=== PATIENT | male | born 1940 | race Caucasian/White ===

== ENCOUNTER 2020-09-11 08:56 | Outpatient (CLI) | payer MEDICARE, SELFPAY ==
--- NOTE | ~2020-09-11 | US_ITS ---
EXAMINATION: US renal BI DATE: 09/11/2020 09:30 INDICATION: Possible renal lesions detected on screening TECHNIQUE: Multiple grayscale and Doppler ultrasound images of the kidneys were obtained. COMPARISON: None. FINDINGS: The right kidney measures 11.3 x 6.1 x 5.0 cm. The atrophic left kidney measures 7.0 x 3.6 x 3.4 cm. The kidneys demonstrate normal parenchymal echogenicity. There is no hydronephrosis. The bl adder volume is 2448 cc prevoid and 1923 cc post void. No bladder wall thickening is identified. IMPRESSION: 1. Urinary retention. 2. Mild left kidney atrophy. Reviewed, dictated and finalized at location A.
== END 2020-09-11 08:57 | disposition home or self-care (01) ==
LOC: ANHIMG 09:03
PROVIDERS: PCP Family Medicine; Visit Provider Family Medicine
DX: R68.89 Other general symptoms and signs (principal)
CPT/HCPCS: 76775

== ENCOUNTER 2022-07-16 11:32 | Outpatient (NON) | payer MEDICARE, SELFPAY ==
[2022-07-16 18:50] LABS: Immunochemical Fecal Occult Bl Negative (N)
[2022-07-16 18:51] LABS: IFOB Positive Control Positive
== END 2022-07-16 11:33 | disposition home or self-care (01) ==
LOC: ANHGOSHLAB 11:34
PROVIDERS: PCP Family Medicine; Visit Provider Family Medicine
DX: D64.9 Anemia, unspecified (principal)
CPT/HCPCS: 82274

== ENCOUNTER 2022-08-20 11:14 | Outpatient (CLI) | payer MEDICARE, SELFPAY ==
--- NOTE | ~2022-08-20 | XR_ITS ---
XR lumbar spine min 4V DATE: 08/20/2022 11:38 INDICATION: Low back pain, chronic, with recent worsening TECHNIQUE: AP, lateral, coned lateral lumbosacral and bilateral oblique views COMPARISON: None FINDINGS: There is approximately 17 degrees levoscoliosis of the lower thoracic and lumbar spine. There is a transitional lumbosacral vertebra with bilateral pseudoarthrosis. There is prominent degenerative disc disease throughout the lumbar spine, most prominent in the mid a nd lower lumbar area. No fracture or bone destruction of the lumbar spine or spondylolysis or spondylolisthesis is detected . The sacroiliac joints are intact. IMPRESSION: Rotatory levoscoliosis and prominent multilevel degenerative disc disease Reviewed, dictated and finalized at location B. IMPRESSION: Rotatory levoscoliosis and prominent multilevel degenerative disc d isease
== END 2022-08-20 11:15 | disposition home or self-care (01) ==
LOC: ANHIMG 11:19
PROVIDERS: PCP Family Medicine; Visit Provider Family Medicine
DX: M51.36 Other intervertebral disc degeneration, lumbar region (principal)
CPT/HCPCS: 72110

== ENCOUNTER 2024-05-15 17:59 | Emergency (ER) | payer MEDICARE, SELFPAY ==
[2024-05-15 18:17] VITALS: BP 152/67; PULSE 59; RESP 20; TEMP 36; O2SAT 99
[2024-05-15 18:28] VITALS: BP 152/65; PULSE 61; RESP 13; O2SAT 98
[2024-05-15 19:06] LABS: Basophils Percent Auto 0.5 % (0.2-1.2); Eosinophils Absolute Auto 0.1 K/mm3 (0-0.3); Eosinophils Percent Auto 1.4 % (0-4.4); Hematocrit 33.6 % (42.0-52.0); Hemoglobin 11.4 g/dL (14.0-18.0); Immature Granulocyte Absolute 0.02 K/mm3 (0.00-0.031); Immature Granulocyte Percent A 0.3 % (0-0.5); Lymphocytes Absolute Auto 1.34 K/mm3 (0.9-3.2); Lymphocytes Percent Auto 20.9 % (18.3-44.2); Mean Corpuscular HGB Conc 33.9 g/dl (32-36); Mean Corpuscular Hemoglobin 33.9 pg (26-34); Mean Platelet Volume 9.9 fl (7.4-10.4); Monocytes Absolute Auto 0.6 K/mm3 (0.1-0.6); Monocytes Percent Auto 8.8 % (2.6-8.5); Neutrophils Absolute Auto 4.4 K/mm3 (1.3-6.7); Neutrophils Percent Auto 68.1 % (45.5-73.1); Platelet Count Result 210 k/mm3 (150-375); Red Blood Count 3.36 M/mm3 (4.6-6.20); Red Cell Distribution Width 13.1 % (11.5-14.5); White Blood Count 6.4 K/mm3 (4.5-10.0)
[2024-05-15 19:16] LABS: Anion Gap 6 mmol/L (4-12); Blood Urea Nitrogen 19 mg/dL (9-20); Calcium 9.2 mg/dL (8.4-10.2); Carbon Dioxide 27 mmol/L (22-30); Chloride 105 mmol/L (98-107); Estimated CRCL calculation 63 ml/min; Estimated Glomerular Filt Rate > 60; Glucose 97 mg/dL (65-110); Potassium 3.8 mmol/L (3.4-5.0); Sodium 138 mmol/L (137-145)
[2024-05-15 19:19] LABS: Prothrombin Time 14.1 Seconds (11.1-14.7)
[2024-05-15 19:33] LABS: D Dimer 1.04 ug/mL (<0.48)
--- NOTE | 2024-05-15 20:20 | ED.EXTPRO ---
HPI - Extremity Problem General Chief complaint: Extremity Problem,Nontraumatic Stated complaint: right knee pain Time Seen by Provider: 05/15/24 18:41 Source: patient Mode of arrival: ambulatory Limitations: no limitations History of Present Illness HPI Narrative: 83-year-old with a remote history of DVT, hypertension, hypothyroidism head with the complaints of right leg pain for past 1 week. Pain is mostly behind right knee Patient states that he has seen his chiropractor this morning and has for advised to go to the ER for evaluation. He presented denies any chest pain or shortness of breath. Related Data Home Medications Medication Instructions Recorded Confirmed omega 1-dwn-bhr-fish oil 1,000 mg 1 cap PO DAILY 04/28/22 04/04/24 (120 mg-180 mg) capsule (Fish Oil) acetaminophen 650 mg 650 mg PO Q12H 04/04/24 04/04/24 tablet,extended release (Tylenol Arthritis Pain) cetirizine 10 mg capsule (All Day 10 mg PO DAILY PRN 04/04/24 04/04/24 Allergy (cetirizine)) magnesium oxide 400 mg (241.3 mg 400 mg PO DAILY 04/04/24 04/04/24 magnesium) tablet multivitamin 1 tablet PO BID 04/04/24 04/04/24 Allergies Allergy/AdvReac Type Severity Reaction Status Date / Time pseudoephedrine Allergy rapid Verified 05/15/24 18:28 [From [facility]] heart beat Review of Systems Review of Systems: All systems reviewed & are unremarkable except as noted in HPI and below Constitutional: Constitutional: Reports no additional constitutional complaints Eyes: Eyes: Reports no additional eye complaints ENT: Reports system reviewed and no additional complaints, except as documented Cardiovascular: Cardiovascular: Reports no additional cardiovascular complaints Respiratory: Respiratory: Reports no additional respiratory complaints Gastrointestinal: Gastrointestinal: Reports no additional gastrointestinal complaints Musculoskeletal: Musculoskeletal: Reports as per HPI Neurologic: Reports system reviewed and no additional complaints, except as documented [facility] Past Medical History Medical History Complex sleep apnea syndrome Diastolic dysfunction Hypertension Hypothyroidism (acquired) Insomnia Mixed hyperlipidemia Urinary retention Family History Family History Mother Carcinoma of colon, Onset Age: 80 Father Family history of congestive heart failure, Onset Age: 78 Mother Depression Carcinoma of colon, Onset Age: 80 Father Depression, Onset Age: 78 Family history of cardiovascular disease, Onset Age: 78 Family history of congestive heart failure, Onset Age: 78 Social History Social History Smoking status: Never smoker Alcohol intake: never Substance use: never Lack of Transportation: No Lack of Food: Never True Current Housing: I Have Housing Concerned About Future Housing: No Difficulty Paying Gas/Electric Bills: No Difficulty Paying for Meds: No Currently Unemployed: No Education: Master's Degree or Higher Difficulty w/ Childcare or Family Care: No Exam Narrative: GENERAL: Well-appearing, well-nourished, and in no acute distress. HEAD: Normocephalic, atraumatic. EYES: PERRLA and EOMI. ENT: Nares clear, no rhinorrhea or epistaxis. Mucous membranes moist. NECK: Supple. CHEST: Clear to auscultation. No respiratory distress. HEART: Regular rate and rhythm. No murmur heard. Normal peripheral pulses. ABDOMEN: Soft, nontender, nondistended, normal active bowel sounds. EXTREMITIES: Normal range of motion. No edema. Examination of his right leg shows mild tenderness in the right calf, no swelling SKIN: Warm, dry, no rash. NEURO: No focal deficits. Alert and oriented x3. PSYCH: Normal mood and affect. Course Course Emergency Course: notified patient about his lab work. Unfortu
[2024-05-15] MEDS: ENOXAPARIN 100 MG/ML SYRINGE 85 MG SUB-Q (20:46)
[2024-05-15 20:49] VITALS: BP 160/76; PULSE 52; RESP 17; O2SAT 98
== END 2024-05-15 20:49 | disposition home or self-care (01) ==
PROVIDERS: Emergency Provider Family Medicine; PCP Family Medicine
DX: M79.661 Pain in right lower leg (principal); I10 Essential (primary) hypertension; E03.9 Hypothyroidism, unspecified; E78.2 Mixed hyperlipidemia; G47.39 Other sleep apnea; G47.00 Insomnia, unspecified; Z79.899 Other long term (current) drug therapy
CPT/HCPCS: 36415; 80048; 85025; 85380; 85610; 96372; 99283; J1650

== ENCOUNTER 2024-05-16 07:10 | Outpatient (CLI) | payer MEDICARE, SELFPAY ==
--- NOTE | ~2024-05-16 | US_ITS ---
EXAMINATION: US venous doppler LE RT DATE: 05/16/2024 07:42 INDICATION: Right lower limb swelling. TECHNIQUE: Grayscale ultrasound images without and with compression and Doppler ultrasound images of the right lower extremity veins were obtained. COMPARISON: Ultrasound 05/03/2005 FINDINGS: The visualized portions of right common femoral vein, profunda (deep) femoral vein, femoral vein, pop liteal vein, peroneal veins, posterior tibial veins, and greater saphenous vein outflow are patent. IMPRESSION: 1. No deep venous thrombosis. Reviewed, dictated and finalized at location A.
== END 2024-05-16 07:11 | disposition home or self-care (01) ==
PROVIDERS: PCP Family Medicine; Visit Provider Family Medicine
DX: M79.89 Other specified soft tissue disorders (principal)
CPT/HCPCS: 93971

== ENCOUNTER 2024-05-25 14:39 | Outpatient (CLI) | payer MEDICARE, SELFPAY ==
--- NOTE | ~2024-05-25 | US_ITS ---
EXAMINATION: US arterial ankle brachial ind DATE: 05/25/2024 15:31 INDICATION: Other specified signs and symptoms involving the circulatory system including claudicatio n TECHNIQUE: Segmental pressures and plethysmographic and Doppler waveforms of the brachial and lower e xtremity arteries were obtained. COMPARISON: None. FINDINGS: Right and left brachial artery pressures of 180 mm Hg and 173 mm Hg, respectively, are concordant (no rmal difference <= 30 mmHg). The right ankle-brachial index (TYSON) is 1.11 (normal >= 0.9-1.0). The right great toe-brachial index (TBI) is 0.71 (normal >= 0.65). Arterial Doppler waveforms are monophasic with brisk systolic upstrok es at both the right dorsalis pedis and posterior tibial arteries. The left TYSON is 0.94. The left TBI is 0.74. Arterial Doppler waveforms are biphasic at the left poste rior tibial artery and monophasic at the left dorsalis pedis artery, both with brisk systolic upstrok es. IMPRESSION: 1. No significant arterial occlusive disease with normal bilateral ABIs and TBIs. Reviewed, dictated and finalized at location B. IMPRESSION: 1. No significant arterial occlusive disease with normal bilateral ABIs and TBI s.
== END 2024-05-25 14:40 | disposition home or self-care (01) ==
PROVIDERS: PCP Family Medicine; Visit Provider Clinical Nurse Specialist
DX: R09.89 Other specified symptoms and signs involving the circulatory and respiratory systems (principal)
CPT/HCPCS: 93922

== ENCOUNTER 2024-05-30 12:35 | Outpatient (CLI) | payer MEDICARE, SELFPAY ==
--- NOTE | ~2024-05-30 | MR_ITS ---
EXAMINATION: MR lumbar spine wo con DATE: 05/30/2024 13:14 INDICATION: Radiculopathy, lumbar region. TECHNIQUE: Magnetic resonance imaging (MRI) of the lumbar spine was performed without intravenous con trast. Sequences included sagittal T2-weighted FSE, sagittal T2-weighted FS FSE, sagittal T1-weighted FSE, and axial T2-weighted FSE. COMPARISON: Lumbar spine radiographs 08/20/2022 FINDINGS: There is 13 degrees levoscoliosis of lumbar spine. There is mild chronic anterior wedging o f T12 and L1 vertebral bodies. There is mildly decreased disc height at L1-L2, moderately decreased d isc height at L2-L3, severely decreased disc height at L3-L4, moderately decreased disc height at L4- L5, and severely decreased disc height at L5-S1. The distal spinal cord signal intensity is normal. T he conus medullaris is at L2. There is moderate atrophy of left kidney. The following disc levels are specifically discussed: L1-L2: The disc is bulging. There is mild right and severe left facet joint osteoarthritis. There is mild bilateral neural foraminal stenosis. There is mild central canal stenosis. L2-L3: The disc is bulging. There is mild bilateral facet joint osteoarthritis. There is mild bilater al neural foraminal stenosis. There is mild central canal stenosis. L3-L4: The disc is bulging. There is mild bilateral facet joint osteoarthritis. There is mild bilater al neural foraminal stenosis. There is mild central canal stenosis. L4-L5: The disc is bulging. There is moderate bilateral facet joint osteoarthritis. There is mild rig ht and moderate left neural foraminal stenosis. There is mild central canal stenosis. L5-S1: The disc is bulging and has an annular fissure. There is mild right and severe left facet join t osteoarthritis. There is mild left neural foraminal stenosis. There is no central canal stenosis. IMPRESSION: 1. Severe lumbar spondylosis. 2. Lumbar levoscoliosis. Reviewed, dictated and finalized at location A.
== END 2024-05-30 12:36 | disposition home or self-care (01) ==
LOC: ANHIMG 12:37
PROVIDERS: PCP Family Medicine; Visit Provider Clinical Nurse Specialist
DX: M47.26 Other spondylosis with radiculopathy, lumbar region (principal)
CPT/HCPCS: 72148

== ENCOUNTER 2024-06-13 14:37 | Outpatient (CLI) | payer MEDICARE, SELFPAY ==
--- NOTE | ~2024-06-13 | XR_ITS ---
Left Knee Technique: AP, lateral, and sunrise views were obtained. Clinical History: Pain Findings: No fracture or dislocation is seen. Osseous alignment is anatomic. There is minimal patella r spurring. Soft tissues are unremarkable. No joint effusion is seen. Impression: Minimal patellar spurring. Reviewed, dictated and finalized at location . Impression: Minimal patellar spurring.
== END 2024-06-13 14:38 | disposition home or self-care (01) ==
LOC: ANHIMG 14:42
PROVIDERS: PCP Family Medicine; Visit Provider Physical Medicine & Rehabilitation Pain Medicine
DX: M25.561 Pain in right knee (principal); M25.562 Pain in left knee
CPT/HCPCS: 73564

== ENCOUNTER 2025-02-20 15:12 | Outpatient (CLI) | payer MEDICARE, SELFPAY ==
--- NOTE | ~2025-02-20 | XR_ITS ---
XR hip BI 2V w AP pelvis 02/20/2025 15:48 Indication: Chronic hip pain Procedure: AP pelvis and 2 views each hip Comparison: No prior studies for comparison. Findings: There is mild osteoarthritis of the hips. There is lower lumbar spondylosis partially visua lized. Pelvic rings are intact. There is atherosclerosis of the femoral vessels proximally. There is levoscoliosis of the lumbar spine. Sacral foramen are symmetric. Impression: 1: Mild bilateral symmetric osteoarthritis of the hips. Reviewed, dictated and finalized at location A. Impression: 1: Mild bilateral symmetric osteoarthritis of the hips.
--- OUTSIDE RECORDS SUMMARY | 2025-02-20 16:33 | XMS_ITS ---
Author Organization [facility] sen Address [address] [place] [address] Care Team Providers Care Mental Health Aides Teacher Name Role Phone zzzzMigration, zzzzProvider Unavailable Unav ailable REASON FOR VISIT EMR-Angel Encounters Encounter Location Date Provider Diagnosis [facility] [address] [facility] [facility] [address] [place] [address] 09/18/2023 zzzzProvider zzzzMigration Plan Of Treatment No Information Progress Notes * Braulio ALANIZ IiiDOB: (84 yo M)Acc No.[id number]:09/18/2023 Patient: Phyllis Braulio DAVIS Iii :1940 A ge:82 Y S ex:Male Address:[address], [address], [address] Subjective: * Chief Complaints: * E MR-Angel * Medical History: * Surgical History: * Hospitalization/Major Diagno stic Procedure: * Medications: Objective: * Vitals: * Physical Examination: Assessment: Plan: * Treatment: * Procedure Codes: * true * Date: Generated for Printi ng/Faxing/eTransmitting on: 0 02/20/2025 04:33 PM CDT
--- OUTSIDE RECORDS SUMMARY | 2025-02-20 16:33 | XMS_ITS | Referral Summary ---
Author Organization [facility] [address] Address [address] [place] [address] Care Team Providers Care University Services Program Associate Name Role Phone Anupam Reid MD Unavailable Amanda Britton NP Primary Care Provider Encounters Date Type Department Care Team Description 01/16/2025 3:15 PM COILER OPERATOR Office Visit [facility] [address] [place] [address] Eulogio Hernandez MD Chronic diastolic congestive heart failure (HCC) (Primary Dx); Essential hypertension; Hyperlipidemia, unspecified hyperlipidemia type; Complex sleep apnea syndrome from Last 3 Months Allergies Active Allergy Reactions Criticality Noted Date Comments Naproxen Other (See comments) Low 08/01/2019 Unknown Sulfamethoxazole Other (See comments) Low 9 Unknown Trazodone Other (See comments) Low 08/01/2019 Unknown Medications levothyroxine (SYNTHROID, LEVOTHROID) 100 mcg tablet Take 1 tablet (100 mcg total) by mouth application development liaison before breakfast 9 Active doxazosin (CARDURA) 4 mg tablet Take 1 tablet (4 mg total) by mouth nightly 9 Active sertraline (ZOLOFT) 25 mg tablet Take 1 tablet (25 mg total) by mouth daily 9 Active atorvastatin (LIPITOR) 10 mg tablet Take 1 tablet (10 mg total) by mouth daily 9 Active acetaminophen ER (TYLENOL) 650 mg 8 hr tablet Take 1 tablet (650 mg total) by mouth 3 (three) times a day Active omega-3 fatty acids 1,000 mg capsule Take 1 capsule by mouth daily Active multivitamin capsule Take 1 capsule by mouth 2 (two) times a day Active temazepam (RESTORIL) 15 mg capsule Take 1 capsule (15 mg total) by mouth nightly as needed 0 Active magnesium oxide (MAG-OX) 400 mg (241.3 mg elemental magnesium) tabletIndicatio ns:hypomagnesem ia Take 1 tablet (400 mg total) by mouth daily Active cetirizine (ZyrTEC) 10 mg tablet Take 1 tablet (10 mg total) by mouth daily Active diclofenac DR (VOLTAREN) 50 mg EC tablet Take 1 tablet (50 mg total) by mouth 2 (two) times a day 5 Active traZODone (DESYREL) 100 mg tablet Take 0.5 tablets (50 mg total) by mouth daily 5 Active melatonin 10 mg tablet Take 1 tablet (10 mg total) by mouth daily Active Active Problems Problem Noted Date Diagnosed Date Congestive heart failure 08/01/2019 Diastolic dysfunction 08/01/2019 Complex sleep apnea syndrome 08/01/2019 Hypothyroidism 08/01/2019 Essential hypertension 08/01/2019 Hyperlipidemia 08/01/2019 Cardiomyopathy 08/01/2019 Immunizations Immunization Administration Dates Next Due Pfizer SARS-CoV-2 Monovalent Vaccination (12+ Yrs) PURPLE 08/25/2021,01/24/2021,12/26/2020 Social History Tobacco Use Types Packs/Day Years Used Date Smoking Tobacco: Never Smokeless Tobacco: Never Tobacco Cessation:Counseling Given: Not Answered Alcohol Use Standard Drinks/Week Comments Not Currently 0 (1 standard drink = 0.6 oz pur e alcohol) Sex and Gender Information Value Date Recorded Sex Assigned at Not on file Legal Sex Male 5:45 PM CDT Gender Identity Not on file Sexual Orientation Not on file Last Filed Vital Signs Vital Sign Reading Time Taken Comments Blood Pressure 112/62 01/16/2025 3:13 PM COILER OPERATOR Pulse 68 01/16/2025 3:13 PM COILER OPERATOR Temperature - - Respiratory Rate - - Oxygen Saturation 96% 01/16/2025 3:13 PM COILER OPERATOR Inhaled Oxygen Concentration - - Weight 87.5 kg (193 lb) 01/16/2025 3:13 PM COILER OPERATOR Height 185.4 cm (6' 1 ) 01/16/2025 3:13 PM COILER OPERATOR Body Mass Index 25.46 01/16/2025 3:13 PM COILER OPERATOR Plan of Treatment Not on file Insurance MEDICARE [facility] [place] [facility] [place] Care Teams University Services Program Associate Relationship Specialty Start Date End Date Amanda Britton NP [address] [place] [address] [place] [address] PCP - General Cardiovascular Disease 01/16/25 Anupam Reid MD [address] [place] [address] 04/04/19
--- OUTSIDE RECORDS SUMMARY | 2025-02-20 16:33 | XMS_ITS ---
Author Organization [facility] sen Address [address] [place] [address] Care Team Providers Care Tube Man Name Role Phone zzzzMigration, zzzzProvider Unavailable Unav ailable REASON FOR VISIT EMR-Angel Encounters Encounter Location Date Provider Diagnosis [facility] [address] [place] [address] 09/17/2023 zzzzProvider zzzzMigration Plan Of Treatment No Information Progress Notes * Braulio ALANIZ IiiDOB: (84 yo M)Acc No.[id number]:09/17/2023 Patient: Phyllis Braulio DAVIS Iii :1940 A ge:82 Y S ex:Male Address:[address], [address], [address] Subjective: * Chief Complaints: * E MR-Angel * Medical History: * Surgical History: * Hospitalization/Major Diagno stic Procedure: * Medications: Objective: * Vitals: * Physical Examination: Assessment: Plan: * Treatment: * Procedure Codes: * true * Date: Generated for Printi ng/Faxing/eTransmitting on: 0 02/20/2025 04:32 PM CDT
--- OUTSIDE RECORDS SUMMARY | 2025-02-20 16:33 | XMS_ITS | Patient Health Record ---
Author Organization [facility] Address [address] [facility] [place] [address] Support Name Relationship Address Phone Braulio Alaniz Iii Guarantor Unknown Reason For Referral No Information Plan Of Treatment No Information
--- OUTSIDE RECORDS SUMMARY | 2025-02-20 16:33 | XMS_ITS | Clinical Summary ---
Author Organization [facility] [address] Address [address] [place] [address] Care Team Providers Care Emr Trainer Name Role Phone Anupam Reid MD Unavailable Amanda Britton NP Primary Care Provider [phone] Allergies Active Allergy Reactions Criticality Noted Date Comments Naproxen Other (See comments) Low 08/01/2019 Unknown Sulfamethoxazole Other (See comments) Low 9 Unknown Trazodone Other (See comments) Low 08/01/2019 Unknown Medications levothyroxine (SYNTHROID, LEVOTHROID) 100 mcg tablet Take 1 tablet (100 mcg total) by mouth substance abuse clinician before breakfast 9 Active doxazosin (CARDURA) 4 [...] Essential hypertension 08/01/2019 Hyperlipidemia 08/01/2019 Cardiomyopathy 08/01/2019 Encounters Date Type Department Care Team Description 01/16/2025 3:15 PM ORACLE FINANCIALS CONSULTANT Office Visit [facility] [address] [place] [address] Eulogio Hernandez MD Chronic diastolic congestive heart failure (HCC) (Primary Dx); Essential hypertension; Hyperlipidemia, unspecified hyperlipidemia type; Complex sleep apnea syndrome from Last 3 Months Immunizations Immunization Administration Dates Next Due Pfizer SARS-CoV-2 Monovalent Vaccination (12+ Yrs) PURPLE 08/25/2021,01/24/2021,12/26/2020 Medical History Medical History Date Comments Thyroid disease Sleep apnea Enlarged prostate Family History Medical History Relation Name Comments Heart failure Father Heart failure Mother Relation Name Status Comments Brother 1 Alive Brother 2 Alive Father (Age 79) Mother (Age 100) Sister 1 Alive Sister 2 71 Alive Social History Tobacco Use Types Packs/Day Years [...] on file Sexual Orientation Not on file Obstetrics History Last Filed Vital Signs Vital Sign Reading Time Taken Comments Blood Pressure 112/62 01/16/2025 3:13 PM ORACLE FINANCIALS CONSULTANT Pulse 68 01/16/2025 3:13 PM ORACLE FINANCIALS CONSULTANT Temperature - - Respiratory Rate - - Oxygen Saturation 96% 01/16/2025 3:13 PM ORACLE FINANCIALS CONSULTANT Inhaled Oxygen Concentration - - Weight 87.5 kg (193 lb) 01/16/2025 3:13 PM ORACLE FINANCIALS CONSULTANT Height 185.4 cm (6' 1 ) 01/16/2025 3:13 PM ORACLE FINANCIALS CONSULTANT Body Mass Index 25.46 01/16/2025 3:13 PM ORACLE FINANCIALS CONSULTANT Plan of Treatment Health Maintenance Due Date Last Done Comments Depression Screening 1940 Fall Risk Assessment 1940 DTaP/Tdap/Td Vaccine (1 - Tdap) 1952 Hepatitis B Screening 1959 Pneumococcal vaccine 65+ (1 of 2 - PCV) 1960 Well Visit 65+ 2006 Zoster Vaccine (2 of 2) 04/21/2022 02/24/2022 Covid-19 Vaccine (5 - 2023-2 5 season) 2024 03/17/2022, 08/25/2021, 01/24/2021, Additional history exists Influenza Vaccine (#1) 2024 , 08/31/2019, 08/30/2018 Insurance MEDICARE [facility] [place] [facility] [place] Care Teams Emr Trainer Relationship Specialty Start Date End Date Amanda Britton START UP SPECIALIST [facility] [facility] [address] [place] [id number] PCP - General Cardiovascular Disease 01/16/25 Anupam Reid MD [address] [place] [address] 04/04/19
== END 2025-02-20 15:13 | disposition home or self-care (01) ==
PROVIDERS: PCP Clinical Nurse Specialist; Visit Provider Physical Medicine & Rehabilitation Pain Medicine
DX: M16.0 Bilateral primary osteoarthritis of hip (principal)
CPT/HCPCS: 73521

== ENCOUNTER 2025-05-22 11:02 | Emergency (ER) | payer MEDICARE, SELFPAY ==
[2025-05-22 11:21] VITALS: BP 131/67; PULSE 66; RESP 16; TEMP 36.9; O2SAT 98
--- NOTE | 2025-05-22 11:51 | ED_ITS ---
HPI - Abdominal Pain General Chief Complaint: Abdominal Pain Stated Complaint: Lower Abdomen Pain Time Seen by Provider: 05/22/25 11:25 Source: patient and RN notes reviewed Mode of arrival: ambulatory Limitations: no limitations History of Present Illness HPI narrative: 84-year-old male presents Express Care complaining lower abdominal pain since this morning. Patient stated symptoms started this morning and reports having a sharp pain to his lower abdomen. Patient states that radiates to his back. Patient denies any fevers, body aches, chills, nausea, vomiting, diarrhea, constipation, bowel changes, bloody stools, or vomiting blood. Patient denies any urinary symptoms or blood in his urine. Patient does straight cath himself frequently. Patient also has a history diverticulosis. Patient states he has a colonoscopy in 3 days. Patient has never had this pain before. Patient denies any abdominal surgeries. Related Data Home Medications ?Medication ?Instructions ?Recorded ?Confirmed ?Last Taken ?Type omega 7-ktk-ntl-fish oil 1,000 mg 1 cap PO DAILY 04/28/22 05/09/25 Unknown History (120 mg-180 mg) capsule (Fish Oil) acetaminophen 650 mg 650 mg PO Q12H 04/04/24 05/09/25 Unknown History tablet,extended release (Tylenol Arthritis Pain) cetirizine 10 mg capsule (All Day 10 mg PO DAILY PRN allergy symptoms 04/04/24 05/09/25 Unknown History Allergy (cetirizine)) magnesium oxide 400 mg (241.3 mg 400 mg PO .twice a week 04/04/24 05/09/25 Unknown History magnesium) tablet multivitamin 1 tablet PO BID 04/04/24 05/09/25 Unknown History Allergies Allergy/AdvReac Type Severity Reaction Status Date / Time pseudoephedrine (From Allergy rapid Verified 05/22/25 11:28 Sudafed) heart beat Review of Systems Review of Systems: CONSTITUTIONAL: Denies fever, body aches, chills, or sweats. EYES: Denies visual changes, redness, or discharge. ENT: Denies rhinorrhea, congestion, sore throat, or otalgia. CARDIOVASCULAR: Denies chest pain, palpitations, or edema. RESPIRATORY: Denies cough or dyspnea. GASTROINTESTINAL: Positive for abdominal pain. Negative for nausea, vomiting, melena, hematochezia, or diarrhea. GENITOURINARY: Denies dysuria, urinary retention, or hematuria. SKIN: Denies rash or itching. MUSCULOSKELETAL: Denies back pain, joint pain, or myalgia. NEUROLOGIC: Denies headache, numbness, or weakness. PSYCHIATRIC: Denies anxiety or depression. All other systems reviewed are negative, except as documented in HPI. [facility] Past Medical History Medical History (Updated 05/22/25 @ 12:05 by Efrem Bauman APRN) Encounter to establish care SOB (shortness of breath) Bilateral lower extremity edema Hospital discharge follow-up Hypertension Diastolic dysfunction Hypothyroidism (acquired) Mixed hyperlipidemia Urinary retention Complex sleep apnea syndrome Insomnia Family History Family History Mother Carcinoma of colon, Onset Age: 80 Father Family history of congestive heart failure, Onset Age: 78 Mother Depression Carcinoma of colon at age 100 Father Depression, Onset Age: 78 Family history of cardiovascular disease, Onset Age: 78 Family history of congestive heart failure, Onset Age: 78 Social History Social History Smoking status: Never smoker Alcohol intake: never Substance use: never Substance use type: does not use Lack of Transportation: No Lack of Food: Never True Current Housing: I Have Housing Concerned About Future Housing: No Difficulty Paying Gas/Electric Bills: No Difficulty Paying for Meds: No Currently Unemployed: No Education: Master's Degree or Higher Difficulty w/ Childcare or Family Care: No Living arrangements: with family Spiritual care concerns: No Comments At the time of my signature, I reviewed and agree with the nursing past medical, surgical, social, and family history. There is no relevant family history pertinent to the patient complaint. Exam Narrative: GENERAL: This is a well-nourished, well-developed adult, in no apparent distress. They are non ill-appearing, nontoxic appearing. HEAD: normocephalic, atraumatic. EYES: Sclera clear/white. Conjunctiva normal. Vision is grossly intact. Extraocular movements intact EARS: External ears normal, Hearing grossly intact. NOSE: External nose normal THROAT: Mucous membranes moist, NECK: Neck supple, CARDIOVASCULAR: Regular rate and rhythm without murmurs, gallops, or rubs. RESPIRATORY: Clear to auscultation. Breath sounds equal bilaterally. No wheezes, rales, or rhonchi. GASTROINTESTINAL: Abdomen soft, non-tender, nondistended. Bowel sounds are active. No hepato-splenomegaly, or palpable masses. No guarding or guarding. No rebound tenderness, negative McBurney's point tenderness, negative obturator sign, rovsings sign, and psoas sign. No abdominal pain elicited when coughing. SKIN: warm, Dry, intact with no suspicious lesions or rash, good texture and turgor. NEURO: awake, alert, and oriented to person, place and time. There were no obvious focal neurologic abnormalities. EXTREMITIES: No joint tenderness, effusion, or edema noted. BACK: Nontender without deformity. No CVA tenderness. Course Course Emergency Course: Portions of this record may have been created with voice recognition software Level of Care: Express Care Visit Vital Signs Vital signs: Vital Signs Temperature 98.4 F 05/22/25 11:21 Pulse Rate 66 05/22/25 11:21 Respiratory Rate 16 05/22/25 11:21 Blood Pressure 131/67 05/22/25 11:21 Pulse Oximetry 98 05/22/25 11:21 Temperature 98.4 F 05/22/25 11:21 Pulse Rate 66 05/22/25 11:21 Respiratory Rate 16 05/22/25 11:21 Blood Pressure 131/67 05/22/25 11:21 Pulse Oximetry 98 05/22/25 11:21 Reviewed MDM - Abdominal Pain MDM Narrative Medical decision making narrative: Urine dipstick shows evidence of urinary tract infection. Urine is also cloudy. Urine culture is pending. No peritoneal findings on exam,no tenderness to palpation of abdomen during exam. No concerning findings on physical exam. Patient does have a history of diverticulosis and denies ever having any diverticulitis. Patient is afebrile without nausea, vomiting, diarrhea or bowel changes. Through shared decision making with patient and spouse an ER transfer was offered for further evaluation and management of his symptoms, and they elected to decline ER transfer today and to go ahead and treat the urinary tract infection first and monitor at home to see if symptoms improve in the next 24 hours with antibiotics for UTI. Will treat with Bactrim. Strict ER return precautions were discussed with patient, and he was advised the pain does not resolve in the next 24 hours to go to the ER immediately for further evaluation and management. Patient is nontoxic appearing and in no apparent distress. Patient has the mental capacity to make informed medical decisions. Discussed physical exam findings. Advised supportive measures and signs/symptoms to go to the ER. Pt is appropriate for outpt treatment and f/u. Differential Diagnosis Differential diagnosis: Likely acute appendicitis, diverticulitis and other (Urinary tract infection, pyelonephritis. ) Lab Data Attestation: I reviewed the patient's lab results. Labs: Lab Results 05/22/25 Range/Units 11:53 POC Urine Color Yellow POC Urine Clarity Cloudy POC Urine pH 6.5 POC Ur Specif [place] 1.020 POC Urine Protein Trace (Negative) POC Ur Glucose (UA) Negative (Negative) POC Urine Ketones Negative (Negative) POC Urine Blood 2+ (Negative) POC Urine Nitrite Positive (Negative) POC Urine Bilirubin Negative (Negative) POC Urine Urobilinogen 0.2 POC U Leukocyte Esteras 2+ (Negative) Critical Care Time Critical Care Time Critical Care Time: No Discharge Plan Discharge Clinical Impression: Urinary tract infection Qualifiers: Urinary tract infection type: site unspecified Hematuria presence: with hematuria Qualified Code(s): N39.0 - Urinary tract infection, site not specified Patient Disposition: Home Condition: Stable Instructions: Antibiotic Form, Urinary Tract Infection in Men (ED), Urinary Tract Infection in Older Adults (ED) Additional Instructions: Take the antibiotic as prescribed The urine will be sent of for a culture to identify what type of bacteria is causing your infection. If the culture shows that the antibiotic will not get rid of your infection, you will be notified and a new antibiotic will be called in for you. Increase water intake you will need to follow up with your PCP 2-3 days. Go to the ER if your symptoms do not improve in the next 24 hours on antibiotics, or any time you develop worsening symptoms, abdominal pain, fevers, nausea, vomiting, diarrhea, coffee ground emesis, bloody stools, or any other concerns Patient Language: Lithuanian Prescriptions: New sulfamethoxazole-trimethoprim [Bactrim DS] 800-160 mg tablet 1 tablet PO Q12H 7 Days Qty: 14 0RF No Action All Day Allergy (cetirizine) 10 mg capsule 10 mg PO DAILY PRN (Reason: allergy symptoms) acetaminophen [Tylenol Arthritis Pain] 650 mg tablet extended release 650 mg PO Q12H magnesium oxide 400 mg (241.3 mg magnesium) tablet 400 mg PO .twice a week omega 9-pcn-coo-fish oil [Fish Oil] 1,000 mg (120 mg-180 mg) capsule 1 cap PO DAILY multivitamin Tablet 1 tablet PO BID doxazosin 4 mg tablet See Rx Instructions .ROUTE .COMPLEX Qty: 90 1RF Dose Instruction: TAKE 1 TABLET BY MOUTH EVERY DAY Rx Instructions: TAKE 1 TABLET BY MOUTH EVERY DAY atorvastatin 10 mg tablet See Rx Instructions .ROUTE .COMPLEX Qty: 90 1RF Dose Instruction: TAKE 1 TABLET BY MOUTH EVERY DAY Rx Instructions: TAKE 1 TABLET BY MOUTH EVERY DAY sertraline 25 mg tablet 25 mg PO DAILY Qty: 90 1RF diclofenac sodium 50 mg tablet,delayed release (DR/EC) 50 mg PO BID Qty: 60 0RF levothyroxine 100 mcg tablet See Rx Instructions .ROUTE .COMPLEX Qty: 90 1RF Dose Instruction: TAKE 1 TABLET BY MOUTH EVERY DAY Rx Instructions: TAKE 1 TABLET BY MOUTH EVERY DAY trazodone 100 mg tablet See Rx Instructions .ROUTE .COMPLEX Qty: 30 3RF Dose Instruction: TAKE 1 TABLET BY MOUTH EVERY DAY AT BEDTIME NEEDED FOR INSOMNIA Rx Instructions: TAKE 1 TABLET BY MOUTH EVERY DAY AT BEDTIME NEEDED FOR INSOMNIA Follow-up/Referrals: Amanda Britton, CONTINUITY EDITOR-C [Primary Care Provider] - Time of Disposition: 12:06
[2025-05-22 11:56] LABS: EDUAAPPEAR Cloudy; EDUABILI Negative (Negative); EDUABLOOD 2+ (Negative); EDUACOLOR1 Yellow; EDUAGLUCOSE Negative (Negative); EDUAKETONE Negative (Negative); EDUALEUKO 2+ (Negative); EDUANITRATE Positive (Negative); EDUAPH 6.5; EDUAPROTEIN Trace (Negative); EDUAUROBILI 0.2
== END 2025-05-22 12:27 | disposition home or self-care (01) ==
PROVIDERS: PCP Clinical Nurse Specialist
DX: N39.0 Urinary tract infection, site not specified (principal); I10 Essential (primary) hypertension; E78.2 Mixed hyperlipidemia
CPT/HCPCS: 81003; 87077; 87086; 87186; 99213; G0463

== ENCOUNTER 2025-05-24 07:17 | Day surgery (SDC) | payer MEDICARE, SELFPAY ==
[2025-05-09 08:55] VITALS: BMI 25.0
[2025-05-24 07:43] VITALS: BP 141/62; PULSE 76; RESP 16; TEMP 36.5; O2SAT 98; BMI 25.7
[2025-05-24] MEDS: LACTATED RINGERS 1,000 ML 150 ML IV CONT (07:51)
--- NOTE | 2025-05-24 08:07 | P.PNAN_ITS ---
Anes - Initial Pre Proc Eval Procedure: Operation Date: 05/24/25 09:00 Proposed Procedures p Colonoscopy - Robel Roman MD Date/Time: 05/24/25 08:07 Surgeon: Robel Roman MD Pre Op Diagnosis: Anemia, unspecified Patient Data Age: 84 Gender: M Height: 1.85 m Weight: 88.6 kg Last Vital Signs Temp 36.5 C 05/24/25 07:43 Pulse 76 05/24/25 07:43 Resp 16 05/24/25 07:43 BP 141/62 H 05/24/25 07:43 Pulse Ox 98 05/24/25 07:43 O2 Del Method Room Air 05/24/25 07:43 Allergies Allergy/AdvReac Type Severity Reaction Status Date / Time pseudoephedrine (From Allergy rapid Verified 05/24/25 07:41 Sudafed) heart beat Home Medications ?Medication ?Instructions ?Recorded ?Confirmed ?Type omega 2-mns-zmj-fish oil 1,000 mg 1 cap PO DAILY 04/28/22 05/24/25 History (120 mg-180 mg) capsule (Fish Oil) acetaminophen 650 mg 650 mg PO Q12H 04/04/24 05/09/25 History tablet,extended release (Tylenol Arthritis Pain) cetirizine 10 mg capsule (All Day 10 mg PO DAILY PRN allergy symptoms 04/04/24 05/09/25 History Allergy (cetirizine)) magnesium oxide 400 mg (241.3 mg 400 mg PO .twice a week 04/04/24 05/24/25 History magnesium) tablet multivitamin 1 tablet PO BID 04/04/24 05/24/25 History doxazosin 4 mg tablet See Rx Instructions .Route 01/14/25 05/24/25 Rx .COMPLEX #90 tabs atorvastatin 10 mg tablet See Rx Instructions .Route 02/12/25 05/24/25 Rx .COMPLEX #90 tabs sertraline 25 mg tablet 25 mg PO DAILY #90 tabs 03/05/25 05/24/25 Rx diclofenac sodium 50 mg 50 mg PO BID #60 tabs 03/28/25 05/24/25 Rx tablet,delayed release levothyroxine 100 mcg tablet See Rx Instructions .Route 05/09/25 05/24/25 Rx .COMPLEX #90 tabs trazodone 100 mg tablet See Rx Instructions .Route 05/21/25 05/24/25 Rx .COMPLEX #30 tabs sulfamethoxazole 800 1 tablet PO Q12H 7 days #14 tabs 05/22/25 05/24/25 Rx mg-trimethoprim 160 mg tablet (Bactrim DS) Patient hx anesthesia problems: none Family hx anesthesia problems: none Results Review: All pre-operative results and documents have been reviewed as part of the pre- operative evaluation. [facility] Past Medical History Medical History Encounter to establish care SOB (shortness of breath) Bilateral lower extremity edema Hospital discharge follow-up Hypertension Diastolic dysfunction Hypothyroidism (acquired) Mixed hyperlipidemia Urinary retention Complex sleep apnea syndrome Insomnia Family History Family History Mother Carcinoma of colon, Onset Age: 80 Father Family history of congestive heart failure, Onset Age: 78 Mother Depression Carcinoma of colon at age 100 Father Depression, Onset Age: 78 Family history of cardiovascular disease, Onset Age: 78 Family history of congestive heart failure, Onset Age: 78 Social History Social History Smoking status: Never smoker Alcohol intake: never Substance use: never Substance use type: does not use Lack of Transportation: No Lack of Food: Never True Current Housing: I Have Housing Concerned About Future Housing: No Difficulty Paying Gas/Electric Bills: No Difficulty Paying for Meds: No Currently Unemployed: No Education: Master's Degree or Higher Difficulty w/ Childcare or Family Care: No Living arrangements: with family Spiritual care concerns: No Anes - Eval Final PreProcedure Day of Procedure 05/24/25 08:07 Patient weight: normal Heart: regular rate and rhythm Lungs: decreased breath sounds Airway: Mallampati scale class III and special considerations Neurological: alert and oriented Last oral intake: >/= 8 hours ASA classification: III Emergent: no Anesthetic plan: proceed Anesthesia type and monitoring: general GIVS and standard monitoring Results Review: All pre-operative results and documents have been reviewed as part of the pre- operative evaluation. Informed Consent: The patient's anesthetic plan and its attendant risks and benefits were di scussed with the patient/family/POA. Questions were solicited and answers provided to the satisfaction of the patient/family/POA.
--- NOTE | 2025-05-24 08:50 | PM.IMHP ---
H&P: HPI History of Present Illness Date/Time: 05/24/25 08:50 Chief Complaint: screening colonoscopy Narrative: This is the patient's third colonoscopy. There are no GI symptoms and there is no family history of colorectal cancer. Review of Systems Review of Systems: All systems reviewed & are unremarkable except as noted in HPI and below PMFSH Past Medical History Medical History Encounter to establish care SOB (shortness of breath) Bilateral lower extremity edema Hospital discharge follow-up Hypertension Diastolic dysfunction Hypothyroidism (acquired) Mixed hyperlipidemia Urinary retention Complex sleep apnea syndrome Insomnia Family History Family History Mother Carcinoma of colon, Onset Age: 80 Father Family history of congestive heart failure, Onset Age: 78 Mother Depression Carcinoma of colon at age 100 Father Depression, Onset Age: 78 Family history of cardiovascular disease, Onset Age: 78 Family history of congestive heart failure, Onset Age: 78 Social History Social History Smoking status: Never smoker Alcohol intake: never Substance use: never Substance use type: does not use Lack of Transportation: No Lack of Food: Never True Current Housing: I Have Housing Concerned About Future Housing: No Difficulty Paying Gas/Electric Bills: No Difficulty Paying for Meds: No Currently Unemployed: No Education: Master's Degree or Higher Difficulty w/ Childcare or Family Care: No Living arrangements: with family Spiritual care concerns: No Meds Home Medications and Allergies Home Medications ?Medication ?Instructions ?Recorded ?Confirmed ?Type omega 6-oon-hcd-fish oil 1,000 mg 1 cap PO DAILY 04/28/22 05/24/25 History (120 mg-180 mg) capsule (Fish Oil) acetaminophen 650 mg 650 mg PO Q12H 04/04/24 05/09/25 History tablet,extended release (Tylenol Arthritis Pain) cetirizine 10 mg capsule (All Day 10 mg PO DAILY PRN allergy symptoms 04/04/24 05/09/25 History Allergy (cetirizine)) magnesium oxide 400 mg (241.3 mg 400 mg PO .twice a week 04/04/24 05/24/25 History magnesium) tablet multivitamin 1 tablet PO BID 04/04/24 05/24/25 History doxazosin 4 mg tablet See Rx Instructions .Route 01/14/25 05/24/25 Rx .COMPLEX #90 tabs atorvastatin 10 mg tablet See Rx Instructions .Route 02/12/25 05/24/25 Rx .COMPLEX #90 tabs sertraline 25 mg tablet 25 mg PO DAILY #90 tabs 03/05/25 05/24/25 Rx diclofenac sodium 50 mg 50 mg PO BID #60 tabs 03/28/25 05/24/25 Rx tablet,delayed release levothyroxine 100 mcg tablet See Rx Instructions .Route 05/09/25 05/24/25 Rx .COMPLEX #90 tabs trazodone 100 mg tablet See Rx Instructions .Route 05/21/25 05/24/25 Rx .COMPLEX #30 tabs sulfamethoxazole 800 1 tablet PO Q12H 7 days #14 tabs 05/22/25 05/24/25 Rx mg-trimethoprim 160 mg tablet (Bactrim DS) Allergies Allergy/AdvReac Type Severity Reaction Status Date / Time pseudoephedrine (From Allergy rapid Verified 05/24/25 07:41 Sudafed) heart beat Vital Signs Vital Signs - 24 hr 05/24/25 07:43 Temperature 97.7 F Pulse Rate 76 Respiratory Rate 16 Blood Pressure 141/62 H Pulse Oximetry 98 Oxygen Delivery Room Air Exam Const: General: cooperative and healthy appearing Resp: Effort & Inspection: normal respiratory effort and able to speak in complete sentences Auscultation: clear to auscultation bilaterally Cardio: Rate: regular rate Rhythm: regular rhythm GI: Inspection: normal to inspection GI Palp: No No hepatosplenomegaly present Auscultation: normal bowel sounds Rectal Exam: deferred Skin: General skin exam: normal color Psych: Appearance: grossly normal Mental Status: mental status grossly normal Assessment and Plan Assessment and plan (1) History of colonic polyps: Code(s): Z86.0100 - Personal history of colon polyps, unspecified Status: Acute Assessment and Plan: The patient is deemed a good candidate for the procedure. Consent signed. Will proceed.
[2025-05-24 09:12] VITALS: BP 121/60; PULSE 63; RESP 15; O2SAT 99
[2025-05-24 09:22] VITALS: BP 132/62; PULSE 64; RESP 25; O2SAT 98
[2025-05-24 09:32] VITALS: BP 134/62; PULSE 65; RESP 21; O2SAT 96
== END 2025-05-24 09:44 | disposition home or self-care (01) ==
PROVIDERS: PCP Clinical Nurse Specialist; Visit Provider Internal Medicine Gastroenterology
PROC: 0DJD8ZZ Inspection of Lower Intestinal Tract, Via Natural or Artificial Opening Endoscopic (ICD-10-PCS; CPT 45378; principal; 2025-05-24 09:00)
DX: Z12.11 Encounter for screening for malignant neoplasm of colon (principal); K57.30 Diverticulosis of large intestine without perforation or abscess without bleeding; E03.9 Hypothyroidism, unspecified; E78.2 Mixed hyperlipidemia; G47.00 Insomnia, unspecified; I11.0 Hypertensive heart disease with heart failure; I50.30 Unspecified diastolic (congestive) heart failure; R33.9 Retention of urine, unspecified; G47.39 Other sleep apnea; Z86.0100 Personal history of colon polyps, unspecified; Z80.0 Family history of malignant neoplasm of digestive organs; Z82.49 Family history of ischemic heart disease and other diseases of the circulatory system
CPT/HCPCS: G0105; J2003; J2704; J7120

== ENCOUNTER 2025-06-05 09:16 | Outpatient (CLI) | payer MEDICARE, SELFPAY ==
--- OUTSIDE RECORDS SUMMARY | 2025-06-05 09:26 | XMS_ITS | Referral Summary ---
Author Organization [facility] [address] Address [address] [place] [address] Care Team Providers Care Warp Doffer Name Role Phone Anupam Reid MD Unavailable Amanda Britton NP Primary Care Provider Allergies Active Allergy Reactions Criticality Noted Date Comments Naproxen Other (See comments) Low 08/01/2019 Unknown Sulfamethoxazole Other (See comments) Low 9 Unknown Trazodone Other (See comments) Low 08/01/2019 Unknown Medications levothyroxine (SYNTHROID, LEVOTHROID) 100 mcg tablet Take 1 tablet (100 mcg total) by mouth neurology physician assistant before breakfast 9 Active doxazosin (CARDURA) 4 [...] Comments Blood Pressure 112/62 01/16/2025 3:13 PM HRIS COORDINATOR Pulse 68 01/16/2025 3:13 PM HRIS COORDINATOR Temperature - - Respiratory Rate - - Oxygen Saturation 96% 01/16/2025 3:13 PM HRIS COORDINATOR Inhaled Oxygen Concentration - - Weight 87.5 kg (193 lb) 01/16/2025 3:13 PM HRIS COORDINATOR Height 185.4 cm (6' 1) 01/16/2025 3:13 PM HRIS COORDINATOR Body Mass Index 25.46 01/16/2025 3:13 PM HRIS COORDINATOR Plan of Treatment Not on file Insurance MEDICARE [employer] Care Teams Warp Doffer Relationship Specialty Start Date End Date Amanda Britton, PLUMBING INSTRUCTOR [facility] [facility] [place] [address] PCP - General Cardiovascular Disease 01/16/25 Anupam Reid MD [address] [place] [address] 04/04/19
--- OUTSIDE RECORDS SUMMARY | 2025-06-05 09:26 | XMS_ITS | Clinical Summary ---
Author Organization [facility] [address] Address [address] [place] [address] Care Team Providers Care Heading Pinner Name Role Phone Anupam Reid MD Unavailable Amanda Britton NP Primary Care Provider [phone] Allergies Active Allergy Reactions Criticality Noted Date Comments Naproxen Other (See comments) Low 08/01/2019 Unknown Sulfamethoxazole Other (See comments) Low 9 Unknown Trazodone Other (See comments) Low 08/01/2019 Unknown Medications levothyroxine (SYNTHROID, LEVOTHROID) 100 mcg tablet Take 1 tablet (100 mcg total) by mouth orthopedic coder before breakfast 9 Active doxazosin (CARDURA) 4 [...] Comments Blood Pressure 112/62 01/16/2025 3:13 PM GENERAL PRACTICE Pulse 68 01/16/2025 3:13 PM GENERAL PRACTICE Temperature - - Respiratory Rate - - Oxygen Saturation 96% 01/16/2025 3:13 PM GENERAL PRACTICE Inhaled Oxygen Concentration - - Weight 87.5 kg (193 lb) 01/16/2025 3:13 PM GENERAL PRACTICE Height 185.4 cm (6' 1) 01/16/2025 3:13 PM GENERAL PRACTICE Body Mass Index 25.46 01/16/2025 3:13 PM GENERAL PRACTICE Plan of Treatment Health Maintenance Due Date [...] 01/24/2021, Additional history exists Influenza Vaccine (#1) 2025 , 08/31/2019, 08/30/2018 Insurance MEDICARE [facility] MEDICARE [facility] Care Teams Heading Pinner Relationship Specialty Start Date End Date Amanda Britton [employer]VEILLANCE SYSTEMS ENGINEER [address] [place] [address] [place] [address] PCP - General Cardiovascular Disease 01/16/25 Anupam Reid MD [address] [place] [address] 04/04/19
[2025-06-05 20:20] LABS: Add Urine Microscopic? YES; Appearance Urine Clear (Clear); Glucose Urine UA Negative (Negative); Leukocyte Esterase Ur 2+ LEU/UL (Negative); Nitrate Urine Negative (Negative); Non Pathogenic Casts 0-2; Specific Grav Ur 1.023 (1.001-1.035)
== END 2025-06-05 09:17 | disposition home or self-care (01) ==
PROVIDERS: PCP Clinical Nurse Specialist; Visit Provider Clinical Nurse Specialist
DX: R39.9 Unspecified symptoms and signs involving the genitourinary system (principal)
CPT/HCPCS: 81001; 87086